=== PATIENT | female | born 1945 | race Caucasian/White ===

== ENCOUNTER 2018-03-30 12:28 | Outpatient (CLI) | payer MEDICARE ==
[~2018-03-30 12:28] MED LIST: MULT1TAB74 PO; SYN0.088T PO; ZOLP5TAB2 PO
[2018-03-30] MEDS ORDERED: BARIUM SULFATE 340 ML SUSP.RECON***PROCEDURE AREA ONLY**DONT ENTER PO ONE (13:22)
== END 2018-03-30 23:59 | disposition home or self-care (01) ==
LOC: RAD 12:28
PROVIDERS: ATTEND Otolaryngology
DX: R13.12 Dysphagia, oropharyngeal phase (principal); Z87.891 Personal history of nicotine dependence
CPT/HCPCS: 74220; 74230

== ENCOUNTER 2019-05-11 15:34 | Observation (INO) | payer MEDICARE ==
[~2019-05-11] VITALS: Ht 175.3 cm; Wt 83.6 kg
--- NOTE | 2019-05-11 16:07 | NUR ---
TELE NEURO INITIATED
[2019-05-11 16:15] LABS: BASOPHILS # (AUTO) 0.1 X10'3 (0-0.2); BASOPHILS % (AUTO) 0.7 % (0-1); EOSINOPHILS # (AUTO) 0.1 X10'3 (0-0.9); EOSINOPHILS % (AUTO) 0.8 % (0-6); HEMATOCRIT 44.1 % (35.0-45.0); LYMPHOCYTES # (AUTO) 1.6 X10'3 (1.1-4.8); LYMPHOCYTES % (AUTO) 20.9 % (21-51); MEAN CORPUSCULAR HEMOGLOBIN 31.7 PG (27.0-31.0); MEAN CORPUSCULAR HGB CONC 33.9 g/dL (33.0-36.5); MEAN CORPUSCULAR VOLUME 93.3 FL (78-98); MEAN PLATELET VOLUME 7.3 FL (7.4-10.4); MONOCYTES # (AUTO) 0.6 X10'3 (0-0.9); MONOCYTES % (AUTO) 8.2 % (2-12); NEUTROPHILS # (AUTO) 5.3 X10'3 (1.8-7.7); NEUTROPHILS % (AUTO) 69.4 % (42-75); PLATELET COUNT 259 X10'3 (140-440); RED BLOOD COUNT 4.73 X10'6 (4.20-5.60); RED CELL DISTRIBUTION WIDTH 12.8 % (11.5-14.5); WHITE BLOOD COUNT 7.6 X10'3 (4.5-11.0)
[2019-05-11 16:24] LABS: PARTIAL THROMBOPLASTIN TIME 26 SECONDS (22-32)
[2019-05-11 16:31] LABS: ALANINE AMINOTRANSFERASE 28 U/L (12-78); ALBUMIN/GLOBULIN RATIO 1.1 (1.1-1.5); ALKALINE PHOSPHATASE 133 IU/L (46-116); ANION GAP 7 (8-16); ASPARTATE AMINO TRANSFERASE 14 U/L (10-37); BILIRUBIN,TOTAL 0.4 MG/DL (0.1-1.0); BLOOD UREA NITROGEN 10 MG/DL (7-18); BUN/CREATININE RATIO 13.5 (6.6-38.0); CHLORIDE 103 MMOL/L (99-107); CREATININE 0.74 MG/DL (0.40-0.90); GLUCOSE 111 MG/DL (70-104); POTASSIUM 3.9 MMOL/L (3.5-5.1); SODIUM 141 MMOL/L (135-145); TOTAL CARBON DIOXIDE 30.7 MMOL/L (24-32); TOTAL PROTEIN 7.5 G/DL (6.4-8.2); eGFR 77 ML/MIN
[2019-05-11 16:33] LABS: TROPONIN I < 0.04 NG/ML (0.0-0.05)
[2019-05-11] MEDS ORDERED: SYN0.088T PO (17:24)
[2019-05-11] MEDS ORDERED: FISH12002 PO (17:24)
[2019-05-11] MEDS ORDERED: LEVO100T9 PO (19:35)
[2019-05-11] MEDS ORDERED: potassium CL 10mEq/100ml bag 100 ML IV PRN ×2 (21:15)
[2019-05-11] MEDS ORDERED: magnesium 4gm in 100ml NS 100 ML IV PRN (21:15)
[2019-05-11] MEDS ORDERED: potassium Cl 20 mEq SR tablet PO PRN ×2 (21:15)
[2019-05-11] MEDS ORDERED: docusate sod 100mg capsule PO PRN (21:15)
[2019-05-11] MEDS ORDERED: acetaminophen 325mg tablet PO PRN (21:15)
[2019-05-11] MEDS ORDERED: ondansetron/PF 4mg/2ml inj IV PRN (21:15)
[2019-05-11] MEDS ORDERED: mag hydrox/Alum hydrox/simeth 30ml oral suspension PO PRN (21:15)
[2019-05-11] MEDS ORDERED: magnesium Cl slow-release 64mg tablet PO PRN (21:15)
[2019-05-11] MEDS ORDERED: magnesium 2GM in 50ml NS 50 ML IV PRN (21:15)
--- NOTE | 2019-05-11 22:00 | NUR ---
Patient in ED received report from Shailesh STANLEY. Assumed care of patient. Tucked in patient, resting comfortably. daughter at bedside. no needs at this time.
[2019-05-11] MEDS ORDERED: zolpidem 5mg tablet PO SCH (22:22)
[2019-05-11 22:30] VITALS: BP 132/60
[2019-05-11] MEDS ORDERED: pneumococcal 23-VAL P-sac vacc 25 mcg/0.5ml vial IMVAC ONE (23:30)
[2019-05-12 02:00] VITALS: BP 108/62
[2019-05-12 06:00] VITALS: BP 117/66
--- NOTE | 2019-05-12 06:00 | NUR ---
Patient in room [facility] 4014. I have received report from OBDULIO STANLEY and had the opportunity to ask questions and assume patient care.
--- NOTE | 2019-05-12 06:02 | NUR ---
Gave report to Aaron STANLEY.
[2019-05-12 06:17] LABS: BASOPHILS % (AUTO) 0.6 % (0-1); EOSINOPHILS # (AUTO) 0.1 X10'3 (0-0.9); EOSINOPHILS % (AUTO) 1.6 % (0-6); HEMATOCRIT 42.2 % (35.0-45.0); HEMOGLOBIN 14.1 g/dl (12.0-16.0); LYMPHOCYTES # (AUTO) 1.7 X10'3 (1.1-4.8); LYMPHOCYTES % (AUTO) 30.1 % (21-51); MEAN CORPUSCULAR HEMOGLOBIN 31.8 PG (27.0-31.0); MEAN CORPUSCULAR HGB CONC 33.5 g/dL (33.0-36.5); MEAN CORPUSCULAR VOLUME 94.9 FL (78-98); MEAN PLATELET VOLUME 7.9 FL (7.4-10.4); MONOCYTES # (AUTO) 0.7 X10'3 (0-0.9); NEUTROPHILS # (AUTO) 3.1 X10'3 (1.8-7.7); NEUTROPHILS % (AUTO) 55.7 % (42-75); PLATELET COUNT 195 X10'3 (140-440); RED BLOOD COUNT 4.45 X10'6 (4.20-5.60); RED CELL DISTRIBUTION WIDTH 12.7 % (11.5-14.5); WHITE BLOOD COUNT 5.5 X10'3 (4.5-11.0)
[2019-05-12 07:07] LABS: ALANINE AMINOTRANSFERASE 22 U/L (12-78); ALBUMIN 3.6 G/DL (3.4-5.0); ALBUMIN/GLOBULIN RATIO 1.1 (1.1-1.5); ALKALINE PHOSPHATASE 118 IU/L (46-116); ANION GAP 11 (8-16); ASPARTATE AMINO TRANSFERASE 19 U/L (10-37); BILIRUBIN,TOTAL 0.7 MG/DL (0.1-1.0); BLOOD UREA NITROGEN 12 MG/DL (7-18); BUN/CREATININE RATIO 18.8 (6.6-38.0); CALCIUM 8.6 MG/DL (8.5-10.1); CHLORIDE 106 MMOL/L (99-107); CREATININE 0.64 MG/DL (0.40-0.90); GLUCOSE 90 MG/DL (70-104); MAGNESIUM 1.8 MG/DL (1.5-2.4); SODIUM 141 MMOL/L (135-145); TOTAL CARBON DIOXIDE 23.8 MMOL/L (24-32); TOTAL PROTEIN 6.8 G/DL (6.4-8.2); eGFR > 90 ML/MIN
[2019-05-12] MEDS ORDERED: OMEGA-3/DHA/EPA/FISH OIL 1 EACH CAPSULE.DR PO SCH (08:00)
[2019-05-12] MEDS ORDERED: K and/or MAG REPLACEMENT MC SCH (08:00)
[2019-05-12] MEDS ORDERED: levoTHYROXINE 100mcg tablet PO SCH (08:00)
[2019-05-12 10:00] VITALS: BP 108/66
[2019-05-12 11:24] LABS: CHOL/HDL RATIO 3.7 (0.00-4.99); CHOLESTEROL 210 MG/DL (0-200); HDL CHOLESTEROL 57 MG/DL (35-60); LDL CHOLESTEROL 144 MG/DL (50-100); TRIGLYCERIDES 115 MG/DL (20-135)
[2019-05-12 14:00] VITALS: BP 106/66
--- NOTE | 2019-05-12 14:08 | NUR ---
PAGER ID: [phone] MESSAGE: [phone] RE: [phone] PT'S RIDE IS HERE AND WANTS TO DC HOME IF THAT IS THE PLAN.
[2019-05-12] MEDS ORDERED: ASPI81TA52 PO (15:42)
--- NOTE | 2019-05-12 16:15 | NUR ---
PATIENT DC HOME SAFELY WITH . ALL BELONGINGS IN POSSESSION. PATIENT VERBALIZES UNDERSTANDING OF ALL DC INSTRUCTIONS.
--- NOTE | 2019-05-16 15:15 | NUR ---
Case Management DC follow up: LM/VM asking rtn call if questions/concerns, post DC status Addendum: 05/16/19 at 1548 by Lisa Orellana RN Case Management DC follow up: pt rtnd call. reports feeling "wonderful". Stated the staff was wonderful and took wonderful care of her. Very caring. pt was relieved, happy no s/s stroke. Denies [place], [place], emergent general pain, numbness, tingling to any part of body. Denies s/s r/t possible stroke. Pt understands s/s that would warrant visit to ER for evaluation. verbalizes understanding of meds and why prescribed, continues current meds as ordered, no ase noted. follow up appt w/PCP/Dr Wilson 05/22/2019. All needs met, questions answered at DC. No further questions at this time.
== END 2019-05-12 16:15 | disposition home or self-care (01) ==
LOC: ER 15:35 → ED HOLD 21:12 → EDBEDREQ 21:43 → ORTHO 4S 22:05
PROVIDERS: ADMIT Family Medicine; ATTEND Hospitalist
DX: I63.9 Cerebral infarction, unspecified (principal); E03.9 Hypothyroidism, unspecified; Z86.79 Personal history of other diseases of the circulatory system; Z98.51 Tubal ligation status; Z79.899 Other long term (current) drug therapy
CPT/HCPCS: 36415; 70450; 70544; 70551; 71045; 72125; 80053; 80061; 82948; 83735; 84443; 84484; 85025; 85610; 85730; 87081; 93005; 93306; 93880; 97161; 97530; 99284; G0378

== ENCOUNTER 2019-07-14 18:24 | Emergency (ER) | payer MEDICARE ==
[~2019-07-14] VITALS: Ht 175.3 cm; Wt 81.8 kg
[~2019-07-14 18:24] MED LIST changes: +ASPI81TA52 PO; +FISH12002 PO; +LEVO100T9 PO; -MULT1TAB74 PO; -SYN0.088T PO
[2019-07-14 19:28] VITALS: BP 124/68
[2019-07-14] MEDS ORDERED: ondansetron 4mg rapidly disintigrating tab PO ONE (19:35)
[2019-07-14] MEDS ORDERED: HYDROcodone/acetaminophen 5mg/325mg tablet PO ONE (19:35)
[2019-07-14] MEDS ORDERED: IBUP-1984 PO (20:31)
== END 2019-07-14 20:55 | disposition home or self-care (01) ==
LOC: ER 18:24
DX: M25.562 Pain in left knee (principal); R22.42 Localized swelling, mass and lump, left lower limb; Z79.82 Long term (current) use of aspirin; Z79.899 Other long term (current) drug therapy; X50.1XXA Overexertion from prolonged static or awkward postures, initial encounter; Y93.89 Activity, other specified; Y92.89 Other specified places as the place of occurrence of the external cause; Y99.8 Other external cause status
CPT/HCPCS: 29505; 73564; 99283